=== PATIENT | male | born 1985 | race Caucasian/White ===

== ENCOUNTER → 2019-08-04 08:59 | Outpatient (CLI) | payer OTHER, SELFPAY ==
--- NOTE | 2019-08-04 | CA_ITS ---
APPROVED REPORT EXAM: Comprehensive 2D, Doppler, and color-flow Echocardiogram Senior Web Applications Developer: Emma Prescott RDCS Ht: 5 ft 11 in Wt: 208lbs BSA: 2.14 BP: 150/78 mmHg Indications: Chest Pain R07.89 Conclusion 1. Patient exercised on Hola protocol 10 minutes and 15 seconds, achieved over 85% of the maximum predicted heart rate, the blood pressure response to exercise was adequate, there was no exercise-induced chest discomfort. Patient achieved 12.8 mets of workload on treadmill. The EKG portion of the exercise stress echo is negative for ischemia. 2. Normal left ventricular size and function at rest, with exercise there is increase in contractility in all the segments of the myocardium with hyperdynamic left ventricular systolic response, no obvious regional wall motion abnormality to suggest underlying ischemic heart disease. 3. Normal exercise stress echo.
--- NOTE | 2019-08-04 | CA_ITS ---
APPROVED REPORT Exam: Exercise Treadmill Technologist: Fiorella Connell, Ht: 5 ft 11 in Wt: 208 lbs BSA: 2.14 m2 HR: 77 bpm BP: 123/93 mmHg Rhythm: NSR Medical History Medical History: CHEST PAIN Medications: BaBY ASA,,,,, Allergies: NKA Stress Test Details Test: Manual Treadmill HR Resting HR: 84 bpm Max Heart Rate (APMHR): 184 bpm Max HR Achieved: 172 bpm Target HR (85% APMHR): 156 bpm % of APMHR: 93 Recovery HR: 149 bpm BP Resting BP: 122/90 mmHg Max BP: 166/76 mmHg Recovery BP: 135.0/80.0 mmHg ECG Resting ECG: NSR Clinical Exercise duration: 10:53 min Highest Stage Achieved: Exercise capacity: 12.8 METs Stress ECG Conclusion PATIENT EXERCISED ON HUMBERTO PROTOCOL FOR 10:15 WITH MAX HEART RATE OF 172 BPM WHICH OS 93% OF PM FOR AGE. MAX BP 166/76. METS = 12.8. TEST STOPPED DUE TO SOA AND LEG FATIGUE. NO CHEST PAIN. NO ARRHYTHMIAS/ECTOPY. NORMAL ST RESPONSE TO EXERCISE. NORMAL GXT. STRESS ECHO IMAGES REPORTED SEPARATELY. Test Summary REST . . . . . . . Standing REST . . . . . . . Sitting REST . . . . . . . Sitting REST 13:36 0.0 0.0 84 . 122/ 90 . . Stage 1 01:00 10.0 1.7 102 . . . . Stage 1 02:00 10.0 1.7 110 . . . . Stage 1 03:00 10.0 1.7 108 . . . . Stage 2 01:00 12.0 2.5 124 . 148/ 80 . . Stage 2 02:00 12.0 2.5 129 . 148/ 80 . . Stage 2 03:00 12.0 2.5 131 . 166/ 76 . . Stage 3 01:00 14.0 3.4 136 . . . . Stage 3 02:00 14.0 3.4 148 . . . . Stage 3 03:00 14.0 3.4 154 . . . . Stage 4 01:00 16.0 4.2 169 . . . . Stage 4 . . . . . . . Protocol changed to Manual Treadmill Stage 4 01:53 0.0 0.0 149 . . . Stop exercise at 10:53 RECOVERY 01:00 0.0 0.0 120 . . . . RECOVERY 02:00 0.0 0.0 112 . . . . RECOVERY 03:00 0.0 0.0 102 . 135/ 80 . . RECOVERY 04:00 0.0 0.0 101 . 135/ 80 . . RECOVERY 05:00 0.0 0.0 99 . 135/ 80 . . RECOVERY 05:44 0.0 0.0 101 . 135/ 80 . . Electronically signed by : Don Hernandez, 08/05/2019 13:17:14
== END ==
PROVIDERS: PCP Family Medicine; Visit Provider Physician Assistant Medical
DX: R07.89 Other chest pain (principal)
CPT/HCPCS: 93017; 93350